=== PATIENT | female | born 1995 | race Two or more races ===

== ENCOUNTER 2023-02-04 23:25 | Emergency (ER) | payer OTHER ==
[~2023-02-04] VITALS: Ht 167.6 cm; Wt 80.0 kg
[2023-02-04 23:29] VITALS: BP 136/77; PULSE 97; RESP 18; TEMP 98; O2SAT 98
[2023-02-05 00:57] LABS: Urine Bacteria NONE SEEN /hpf (None Seen); Urine Blood 3+ /uL (Negative); Urine Clarity CLOUDY (Clear); Urine Color Yellow (Yellow); Urine Mucus FEW (None Seen); Urine Protein, UAD 3+ (Negative); Urine WBC 2553 /hpf (0 - 5); Urine WBC Clumps PRESENT /hpf (None Seen)
[2023-02-05 00:58] LABS: Urine Specific Gravity 1.024 (1.001-1.035)
[2023-02-05] MEDS ORDERED: NITR-87 PO (01:23)
[2023-02-05] MEDS ORDERED: NITROFURANTOIN 100 mg CAP PO ONE (01:30)
== END 2023-02-05 01:35 | disposition home or self-care (01) ==
LOC: ER 23:33
DX: N39.0 Urinary tract infection, site not specified (principal); Z79.899 Other long term (current) drug therapy
CPT/HCPCS: 81001

== ENCOUNTER 2023-02-25 17:39 | Emergency (ER) | payer OTHER ==
[~2023-02-25] VITALS: Ht 167.6 cm; Wt 92.0 kg
[~2023-02-25 17:39] MED LIST: NITR-87 PO
[2023-02-25 18:26] VITALS: BP 131/85; PULSE 78; RESP 18; TEMP 98; O2SAT 99
[2023-02-25] MEDS ORDERED: IBUPROFEN 800 MG TAB PO ONE (19:30)
[2023-02-25] MEDS ORDERED: IBUP-1455 PO (19:30)
== END 2023-02-25 20:25 | disposition home or self-care (01) ==
LOC: ER 17:39
DX: S90.31XA Contusion of right foot, initial encounter (principal); Z79.1 Long term (current) use of non-steroidal anti-inflammatories (NSAID); Z79.899 Other long term (current) drug therapy; X58.XXXA Exposure to other specified factors, initial encounter; Y93.66 Activity, soccer; Y92.89 Other specified places as the place of occurrence of the external cause; Y99.8 Other external cause status
CPT/HCPCS: 73630

== ENCOUNTER 2023-03-25 22:58 | Emergency (ER) | payer OTHER ==
[~2023-03-25] VITALS: Ht 167.6 cm; Wt 90.0 kg
[~2023-03-25 22:58] MED LIST changes: +IBUP-1455 PO
[2023-03-26 00:05] VITALS: BP 136/93; PULSE 83; RESP 18; O2SAT 98
== END 2023-03-26 01:59 | disposition left against medical advice (07) ==
LOC: ER 22:58
DX: R05.9 Cough, unspecified (principal); R09.81 Nasal congestion

== ENCOUNTER 2023-03-29 10:45 | Emergency (ER) | payer OTHER ==
[~2023-03-29] VITALS: Ht 167.6 cm; Wt 91.7 kg
[2023-03-29 10:51] VITALS: BP 136/73; PULSE 109; RESP 20; O2SAT 98
== END 2023-03-29 17:15 | disposition left against medical advice (07) ==
LOC: ER 10:45
DX: H57.12 Ocular pain, left eye (principal); Z53.21 Procedure and treatment not carried out due to patient leaving prior to being seen by health care provider

== ENCOUNTER 2025-03-07 12:40 | Emergency (ER) | payer OTHER ==
[~2025-03-07] VITALS: Ht 167.6 cm; Wt 2.2 kg
[2025-03-07 12:43] VITALS: BP 137/85; PULSE 99; RESP 16; TEMP 98.2; O2SAT 99
[2025-03-07 13:41] LABS: Urine Protein, UAD TRACE (Negative)
--- NOTE | 2025-03-07 13:47 | ED.PDOC ---
General HPI Comments A 29 YEAR OLD FEMALE PRESENTS TO THE ED WITH COMPLAINT OF URINARY SYMPTOMS. PATIENT REPORTS AN HAVING PAINFUL URINATION ASSOCIATED WITH FREQUENCY FOR THE PAST 2 DAYS, AND WORSENED TODAY. PATIENT STATES THAT SHE HAS CURRENTLY RUN OUT OF HER ANTIBIOTICS. PATIENT DENIES FEVER, CHILLS, SHORTNESS OF BREATH, CHEST PAIN, ABDOMINAL PAIN, NAUSEA, VOMITING, HEADACHE, OR OTHER COMPLAINTS. NO OTHER SYMPTOMS OR MODIFYING FACTORS AT THIS TIME. PATIENT IS ALERT, ORIENTED X 4, AND HAS STEADY GAIT. Chief Complaint: Urinary Time Seen by MD: 13:45 Primary Care Provider: AMANUEL Reviewed notes: Nurses Notes, Medications, Allergies Allergies: Coded Allergies: No Known Drug Allergy (Verified Allergy, Unknown, 03/26/23) Uncoded Allergies: UNKNOWN ANTIBIOTIC (Allergy, Unknown, 02/04/23) Home Meds Active Scripts Phenazopyridine HCl (Phenazopyridine Hydrochlo) 200 Mg Tab, 200 MG PO TID, #6 TAB Prov:BERYL MULLINS 03/07/25 Sulfamethoxazole W/Trimethopri (Bactrim Ds Tablet) 1 Tab Tb, 1 TAB PO BID for 10 Days, #20 TAB Prov:BERYL MULLINS 03/07/25 Ibuprofen Micronized (Ibuprofen) 800 Mg Tab, 800 MG PO Q6HP PRN, #30 TAB 0 Refills Prov:LIZZETTE TINSLEY 02/25/23 Nitrofurantoin Monohydrate Mac (Macrobid) 100 Mg Cap, 100 MG PO BID for 5 Days, #10 CAP 0 Refills Prov:LIZZETTE TINSLEY 02/05/23 Information Source: Patient Mode of Arrival: Ambulatory Severity: Moderate Timing: Hours Duration: Since onset, Intermittent, Days Prehospital treatment: None Onset: Spontaneous Symptoms: Dysuria, Frequency History of: None Location: Suprapubic associated signs and symptoms: Dysuria, Frequency, Urgency Past Medical History PAST MEDICAL HISTORY: Denies Surgical History: Denies all surgeries [employer] History: No Pertinent [employer] History Family History Family History: Reviewed,noncontributory to illness, Unknown Social History Smoker: Non-Smoker Alcohol: Denies ETOH Use Drugs: Denies Drug Use Lives In: Home Constitutional: denies: chills, diaphoresis, fatigue, fever, malaise, sweats, weakness, others EENTM: denies: blurred vision, double vision, ear bleeding, ear discharge, ear drainage, ear pain, ear ringing, eye pain, eye redness, hearing loss, mouth pain, mouth swelling, nasal discharge, nose bleeding, nose congestion, nose pain, photophobia, tearing, throat pain, throat swelling, voice changes, others Respiratory: denies: cough, hemoptysis, orthopnea, SOB at rest, shortness of breath, SOB with excertion, stridor, wheezing, others Cardiovascular: denies: chest pain, dizzy spells, diaphoresis, Dyspnea on exertion, edema, irregular heart beat, left arm pain, lightheadedness, palpitations, PND, syncope, others Gastrointestinal: denies: abdomen distended, abdominal pain, blood streaked bowels, constipated, diarrhea, dysphagia, difficulty swallowing, hematemesis, melena, nausea, poor appetite, poor fluid intake, rectal bleeding, rectal pain, vomiting, others Genitourinary: reports: burning, dysuria, frequency, pain; denies: abnormal vagina bleeding, dyspareunia, flank pain, hematuria, incontinence, , vagina discharge, urgency, others Neurological: denies: dizziness, fainting, headache, left sided numbness, left sided weakness, numbness, paresthesia, pre-existing deficit, right sided numbness, right sided weakness, seizure, speech problems, tingling, tremors, weakness, others Musculoskeletal: denies: back pain, gout, joint pain, joint swelling, muscle pain, muscle stiffness, neck pain, others Integumetry: denies: bruises, change in color, change in hair/nails, dryness, laceration, lesions, lumps, rash, wounds, others Allergic/Immunocompromised: denies: Difficulty Healing, Frequent Infections, Hives, Itching, others Hematologic/Lymphatic: denies: anemia, blood clots, easy bleeding, easy bruising, swollen glands, others Endocrine: denies: excessive hunger, excessive sweating, excessive thirst, excessive urination, flushing, intolerance to cold, intolerance to heat, unexplained weight gain, unexplained weight loss, others Psychiatric: denies: anxiety, bipolar disorder, depression, hopeless, panic disorder, schizophrenia, sleepless, suicidal, others All Other Systems: Reviewed and Negative Physical Exam General Appearance: No Apparent Distress, Obese HEENT: Normal ENT Inspection, PERRL/EOMI, Pharynx Normal, TMs Normal Neck: Full Range of Motion, Non-Tender, Normal, Normal Inspection Respiratory: Chest Non-Tender, Lungs Clear, No Accessory Muscle Use, No Respiratory Distress, Normal Breath Sounds Cardiovascular: No Edema, No JVD, No Murmur, No Gallop, Normal Peripheral Pulses, Regular Rate/Rhythm Breast Exam: Deferred Gastrointestinal: No Organomegaly, No Pulsatile Mass, Normal Bowel Sounds, Soft, Suprapubic (PRESSURE, NO GUARDING AND REBOUND TENDERNESS. ), Tenderness Genitalia: Deferred Pelvic: Normal External Exam, Tender Uterus Rectal: Deferred Extremities: No calf tenderness, Normal capillary refill, Normal inspection, Normal range of motion, Non-tender, No pedal edema Musculoskeletal : Apperance: Normal Neurologic: Alert, field artillery targeting technician II-XII nml as Tested, No Motor Deficits, Normal Affect, Normal Mood, No Sensory Deficits Cerebellar Function: Normal Reflexes: Normal Skin: Dry, Normal Color, Warm Peripheral Pulses: 2+ carotid (R), 2+ carotid (L) Lymphatic: No Adenopathy Was a procedure done? Was a procedure done?: No Differential Diagnosis Kidney stone (Female): N/A Kidney stone (Male): N/A Penile/Scrotal: N/A Urinary Problem (Male): N/A Urinary Problem (Female): Pyelonephritis, UTI, Vaginitis, N/A X-Ray, Labs, Meds, VS Vital Signs Date Time Temp Pulse Resp B/P (MAP) Pulse Ox O2 Delivery O2 Flow Rate FiO2 03/07/25 12:43 98.2 99 16 137/85 99 98.2 Lab Test 03/07/25 13:28 Range/Units Urine Color Yellow Yellow Urine Clarity Turbid H Clear Urine pH 5.5 5.0-9.0 Urine Specific [place] 1.023 1.001-1.035 Urine Protein Trace H Negative Urine Ketones Negative Negative Urine Blood Negative Negative /uL Urine Nitrite Negative Negative Urine Bilirubin Negative Negative Urine Urobilinogen Normal Negative mg/dL Urine Leukocyte Esterase 3+ Negative /uL Urine RBC 6 0 - 4 /hpf Urine Microscopic WBC 92 H 0-5 /HPF Urine Squamous Epithelial Cells Few <5 /hpf Urine Bacteria Few H None Seen /hpf Urine Mucus Few None Seen Urine Glucose Normal Normal mg/dL Urine Test Negative Negative X-Ray, Labs, Meds, VS Comment EXTERNAL MEDICAL RECORDS REVIEWED: [NONE] INDEPENDENT HISTORIANS: [NONE] SOCIAL DETERMINANTS OF HEALTH: [NONE] LABS ORDERED: UA, TEST REVIEWED AND INTERPRETED RESULTS: NONE IMAGING ORDERED: NONE TREATMENTS ORDERED: PYRIDIUM 200MG PO PROCEDURES PERFORMED: NONE CRITICAL CARE TIME: NONE I HAVE DISCUSSED THE PATIENT WITH THE ATTENDING PHYSICIAN DR. SCHMIDT AND HE AGREES WITH THE PATIENT'S PLAN OF CARE AND DISPOSITION. BASED ON HISTORY OF PRESENT ILLNESS, AND PHYSICAL EXAM, PATIENT WILL BE DISCHARGED HOME. DISCUSSED PLAN FOR DISCHARGE HOME WITH RX [SEPTRA DS AND PYRIDIUM 200MG]. MEDICATION WARNINGS GIVEN. SHARED DECISION MAKING: DISCUSSED WITH PATIENT THAT THEIR WORKUP WAS NORMAL. PATIENT INSTRUCTED TO FOLLOW UP WITH PRIMARY CARE PROVIDER IN 1-2 DAYS FOR RE-EVALUATION OF SYMPTOMS. PATIENT VERBALIZES UNDERSTANDING TO RETURN TO ED FOR NEW OR WORSENING SYMPTOMS OR IF FOLLOW UP WITH PCP CANNOT BE OBTAINED. PATIENT FEELS COMFORTABLE GOING HOME AT THIS TIME. ALL QUESTIONS ADDRESSED AT TIME OF DISCHARGE. Time of 1ST Reevaluation: 14:15 Reevaluation 1ST: Unchanged Patient Education/Counseling: Diagnosis, Treatment, Prognosis Family Education/Counseling: No Family Present SEPSIS Sepsis Screen Date sepsis recognized/suspect: Mar 07, 2025 Time Sepsis recognized/suspect: 1245 Recent Procedure: No On Antibiotic Therapy: No Respiratory Rate >20: No Heart Rate >90: Yes Temp<36 C (96.8 F) or >38.3 C: No SBP <90 or MAP <65 mmHG: No New Acute Mental Status Change: No Is the patient on CPAP, BIPAP,: No Physician Orders Phenazopyridine Hcl Tablet (Pyridium Tab (03/07/25 14:15) Vital Signs Date Time Temp Pulse Resp B/P (MAP) Pulse Ox O2 Delivery O2 Flow Rate FiO2 03/07/25 12:43 98.2 99 16 137/85 99 98.2 Departure 1 Departure Time of Disposition: 14:14 Impression: Primary Impression: UTI (urinary tract infection) Qualified Codes: N30.01 - Acute cystitis with hematuria Disposition: HOME / SELF CARE / HOMELESS Condition: Stable Additional Instructions: FOLLOW-UP WITH PCP IN 1 TO 2 DAYS. TAKE MEDICATIONS PRESCRIBED. RETURN TO ED FOR ANY NEW OR WORSENING SYMPTOMS. e-Prescriptions Phenazopyridine HCl (Phenazopyridine Hydrochlo) 200 Mg Tab 200 MG PO TID, #6 TAB Prov: BERYL MULLINS 03/07/25 Sulfamethoxazole W/Trimethopri (Bactrim Ds Tablet) 1 Tab Tb 1 TAB PO BID for 10 Days, #20 TAB Prov: BERYL MULLINS 03/07/25 Discharged With: Self Critical Care Note Critical Care Time?: No Stability Stability form required: No I personally scribed for BERYL MULLINS ([email or web address]) on 03/07/25 at 13:47. Electronically submitted by Domenic Walters ([facility]). I personally scribed for BERYL MULLNIS ([email or web address]) on 03/07/25 at 13:59. Electronically submitted by Domenic Walters ([facility]). BERYL MULLINS Mar 07, 2025 13:47
[2025-03-07] MEDS ORDERED: PHEN-922 PO (14:12)
[2025-03-07] MEDS ORDERED: BACDST PO (14:12)
[2025-03-07] MEDS: PHENAZOPYRIDINE HCL 100 MG TAB PO ONE (14:20)
== END 2025-03-07 14:30 | disposition home or self-care (01) ==
LOC: ER 12:42
DX: N39.0 Urinary tract infection, site not specified (principal); Z88.1 Allergy status to other antibiotic agents; Z79.899 Other long term (current) drug therapy
CPT/HCPCS: 81001; 81025